=== PATIENT | female | born 1990 | race Caucasian/White ===

== ENCOUNTER 2022-06-19 09:26 | Outpatient (CLI) | payer OTHER, SELFPAY ==
[2022-06-19 09:57] LABS: Hematocrit 42.5 % (37.0-47.0); Hemoglobin 14.7 g/dL (12.0-15.0); Mean Corpuscular HGB Conc 34.6 g/dl (32-36); Mean Corpuscular Hemoglobin 34.3 pg (26-34); Mean Corpuscular Volume 99.1 fl (80-100); Mean Platelet Volume 9.5 fl (7.4-10.4); Platelet Count Result 232 k/mm3 (150-375); Red Blood Count 4.29 M/mm3 (4.2-5.4); Red Cell Distribution Width 12.8 % (11.5-14.5); White Blood Count 9.7 K/mm3 (4.5-10.0)
== END 2022-06-19 09:27 | disposition home or self-care (01) ==
PROVIDERS: Visit Provider Student in an Organized Health Care Education/Training Program
DX: Z30.2 Encounter for sterilization (principal)
CPT/HCPCS: 36415; 85027

== ENCOUNTER 2022-06-25 02:26 | Day surgery (SDC) | payer OTHER, SELFPAY ==
[2022-06-15 14:29] VITALS: BMI 32.3
--- NOTE | 2022-06-15 14:36 | SUR.PREOP ---
Report to the Outpatient Waiting Room, entrance under the green pavilion located off [facility], at time _1100 on date _06/25/22 . Planned Procedure Time: _1300,1pm . Time changes happen often and if your time is changed the preop area will call you the afternoon before. - You and your visitor will be asked to self-screen and do not enter if you have any COVID symptoms. - Only one visitor is requested with a max of two and NO children visitors are allowed at this time. - The patient visitor may be requested to leave or wait in car when not with patient due to distancing restrictions. - A mask is optional within the hospital at this time. Patients may have clear liquids (water, carbonated beverages, clear teas, apple juice) until 3 hours prior to surgery with a maximum of 20 ounces. - No food from midnight until time of surgery - Infants may have breast milk until 4 hours before surgery, formula 6 hours prior to surgery. - Children will be allowed to drink immediately following surgery. If applicable, please bring a bottle or sippy cup to assist with drinking. Juice, water, soda, and popsicles are readily available. For infants on formula, please bring formula the day of surgery. Pacifiers are allowed. Take the following medications with a SIP of water the morning of surgery: _n/a DO NOT STOP ANY OF YOUR OTHER PRESCRIPTION MEDICATIONS PRIOR TO SURGERY ?EXCEPT THE FOLLOWING Medications to discontinue per physician MULTIVITAMIN Date to take last dose__06/22/22 Please no make-up, nail puerto rican, hairspray, perfume, deodorant, or body powder the day of surgery. No jewelry (including any body piercings) or valuables the day of surgery, leave them at home. Please take a shower or bath the night before, or the morning of, surgery with an antibacterial soap. Wear comfortable, loose fitting clothing. Children are encouraged to wear pajamas. - Jewelry must be removed prior to entering the operating room. Rings and piercings that are not removed may be cut off. - The hospital will not accept responsibility for valuables. - Please leave all valuables, including medications, at home the day of surgery. If you are going home after surgery, a licensed regional driver must drive you home. - NO public transportation without another adult if you receive anesthesia. - We recommend that an adult stay with you for 24 hours following discharge. - We also recommend that you do not drive, make important decision, drink alcoholic beverages, or take any drugs that were not prescribed by your health care provider for at least 24 hours after your discharge time. For Pediatric surgeries, we recommend two adults accompany the child home. Follow any additional instructions given to you from your surgeon. If you or anyone in your household have experienced Covid symptoms in the past week, please notify your surgeon or the nurse liaison at the phone number below for possible testing. Telephone instructions given to __YENI MUÑOZ and asked if any additional questions and then verbalized understanding. Patient advised to call surgeon office or pre surgery nurse liaison [phone] if any additional questions.
--- NOTE | 2022-06-25 08:51 | PM.IMHP ---
H&P: HPI History of Present Illness Date/Time: 06/25/22 08:51 Chief Complaint: Desires permanent sterilization Narrative: ?32-year-old female who presents for lower laparoscopic bilateral tubal ligation.? Patient has 2 children and she does not desire anymore.? Patient has tried Mirena IUD in the past and did not like it.? Patient reports regular monthly menses at this time.? Patient states her periods are not very heavy.? She denies any dysmenorrhea. Review of Systems Cardiovascular: Cardiovascular: Denies chest pain, Denies leg edema, Denies palpitations, Denies dyspnea and Denies dyspnea on exertion Respiratory: Respiratory: Denies cough, Denies dyspnea and Denies dyspnea on exertion Gastrointestinal: Gastrointestinal: Denies abdominal pain, Denies constipation, Denies diarrhea, Denies nausea and Denies vomiting Genitourinary: Genitourinary: Denies hematuria, Denies urinary frequency, Denies dysuria, Denies pelvic pain, Denies urinary incontinence and Denies vaginal discharge Neurologic: Reports system reviewed and no additional complaints, except as documented Psychiatric: Psychiatric: Reports no additional psychiatric complaints Endocrine: Endocrine: Denies palpitations PMFSH Past Medical History Medical History Anxiety Klebsiella infection UTI (urinary tract infection) Surgical History Surgical History History of colposcopy (03/13/10) colp/bx - squamous atypia, sugg. koilocytotic atypia History of gynecological procedure (02/29/12) mirena iud insertion History of gynecological procedure (08/03/14) mirena iud removal Family History Family History Grandparent Diabetes mellitus maternal grandmother Father Alcohol abuse Social History Social History Smoking status: Current every day smoker Tobacco type: cigarettes Additional smoking assessment comments: cigarettes 1ppd x 16 years Alcohol intake: current Drinks per week: 36 Alcohol use details: beer Substance use: current Substance use type: marijuana Other substance usage details: daily smoking Living arrangements: with family Occupation/Education: occupation Gender identity (if verbalized by the patient): Female Sexual Orientation (if Verbalized by the Patient): Straight or Heterosexual Spiritual care concerns: No Meds Home Medications and Allergies Home Medications Medication Instructions Recorded Confirmed Type vabnanuxk-atn-sovn fumarate 18 1 tab-cap PO DAILY 06/15/22 06/15/22 History mg-FA 600 mcg-vit K 40 mcg capsule (Multi For Her) Allergies Allergy/AdvReac Type Severity Reaction Status Date / Time No Known Allergies Allergy Verified 06/15/22 14:12 Exam Const: General: no acute distress Eyes: EOM: EOMs intact bilaterally Neck: Neck: supple Thyroid: thyroid normal Chest: Breast/axilla inspection: normal inspection of the breasts Breast/axilla palpation: normal palpation of the breasts, normal palpation of the axillae and no axillary lymphadenopathy Resp: Effort & Inspection: normal respiratory effort Auscultation: clear to auscultation bilaterally Cardio: Rate: regular rate Rhythm: regular rhythm GI: Inspection: non-distended GI Palp: Yes Soft to palpation, No Tenderness to palpation present (GI) and No Guarding due to palpation present (GI) Auscultation: normal bowel sounds : General: No bladder normal to palpation External Female Exam: normal external appearance Speculum Exam - Vagina: normal vaginal discharge and No vaginal bleeding Speculum Exam - Cervix: nontender Bimanual exam- vagina & uterus: No bladder normal to palpation and No Cervical tenderness present OB/external & speculum: No vaginal bleeding Skin: General skin exam: normal color a
--- NOTE | 2022-06-25 08:52 | WPDHPUPDATE1 ---
History and Physical Update Update Date/Time: 06/25/22 08:52 History and Physical has been reviewed, including an updated exam of the patient. There are NO changes in the patient's condition. Risks, benefits, and alternatives have been discussed and questions answered. Patient agrees to proceed with procedure.
[2022-06-25 11:30] VITALS: BP 148/83; PULSE 90; RESP 16; TEMP 36.2; O2SAT 99
[2022-06-25] MEDS: LACTATED RINGERS 1,000 ML 30 ML IV CONT (11:30)
[2022-06-25] MEDS: KETOROLAC 15 MG/ML VIAL (*BKC) IV PUSH (12:00)
[2022-06-25] MEDS: ACETAMINOPHEN 500 MG TABLET 1000 MG PO (12:00)
--- NOTE | 2022-06-25 12:42 | P.PNAN_ITS ---
Anes - Initial Pre Proc Eval Procedure: Operation Date: 06/25/22 13:00 Proposed Procedures p Laparoscopic Bilateral Salpingectomy - Marvin Kumar MD Date/Time: 06/25/22 12:42 Surgeon: Marvin Kumar MD Pre Op Diagnosis: desires sterilization Patient Data Age: 32 Gender: F Height: 1.5 m Weight: 74 kg Last Vital Signs Temp 97.2 F L 06/25/22 11:30 Pulse 90 06/25/22 11:30 Resp 16 06/25/22 11:30 BP 148/83 H 06/25/22 11:30 Pulse Ox 99 06/25/22 11:30 O2 Del Method Room Air 06/25/22 11:30 Allergies Allergy/AdvReac Type Severity Reaction Status Date / Time No Known Allergies Allergy Verified 06/25/22 11:56 Home Medications Medication Instructions Recorded Confirmed Type [id number]-spi-gfim fumarate 18 1 tab-cap PO DAILY 06/15/22 06/25/22 History mg-FA 600 mcg-vit K 40 mcg capsule (Multi For Her) Patient hx anesthesia problems: none Family hx anesthesia problems: none Results Review: All pre-operative results and documents have been reviewed as part of the pre- operative evaluation. [facility] Past Medical History Medical History Anxiety Klebsiella infection UTI (urinary tract infection) Surgical History Surgical History History of colposcopy (03/13/10) colp/bx - squamous atypia, sugg. koilocytotic atypia History of gynecological procedure (02/29/12) mirena iud insertion History of gynecological procedure (08/03/14) mirena iud removal Family History Family History Grandparent Diabetes mellitus maternal grandmother Father Alcohol abuse Social History Social History Smoking status: Current every day smoker Tobacco type: cigarettes Additional smoking assessment comments: cigarettes 1ppd x 16 years Alcohol intake: current Drinks per week: 36 Alcohol use details: beer Substance use: current Substance use type: marijuana Other substance usage details: daily smoking Living arrangements: with family Occupation/Education: occupation Gender identity (if verbalized by the patient): Female Sexual Orientation (if Verbalized by the Patient): Straight or Heterosexual Spiritual care concerns: No Anes - Eval Final PreProcedure Day of Procedure 06/25/22 12:42 Patient weight: normal Heart: regular rate and rhythm Lungs: clear to auscultation Airway: Mallampati scale class II Neurological: alert and oriented Last oral intake: >/= 8 hours ASA classification: II Emergent: no Anesthetic plan: proceed Anesthesia type and monitoring: general ETT and standard monitoring Results Review: All pre-operative results and documents have been reviewed as part of the pre-operative evaluation. Informed Consent: The patient's anesthetic plan and its attendant risks and benefits were discussed with the patient/family/POA. Questions were solicited and answers provided to the satisfaction of the patient/family/POA.
[2022-06-25] MEDS: LIDO 1%/EPINEPHRINE 1:100,000 20 ML VIAL INFILTRATE (13:28)
--- NOTE | 2022-06-25 13:47 | P.OP_ITS ---
Procedure Note - Detailed Date of Procedure 06/25/22 Pre-op Diagnosis desires sterilization Post-op Diagnosis Same Procedure Performed laparoscopic bilateral salpingectomy Surgeon Marvin Kumar MD Anesthesia General Indications desires permanent sterilization Findings normal appearing uterus, bilateral fallopian tubes and ovaries Description of Procedure the patient was taken to the operating room where general endotracheal anesthesia was undertaken and found to be adequate. She was then prepped and draped in the dorsal lithotomy position. A pre-operative team brief and time- out were completed. A catheter was placed to drain the bladder. Speculum was placed in the vagina and the cervix was identified. An acorn uterine manipulator was placed as well as single-tooth tenaculum on the anterior lip of the cervix. Attention was then turned to the abdomen which was anesthetized umbilical he with injected anesthetic. A 5 mm skin incision was made in the umbilicus. A 5 mm optical trocar was then placed with direct visualization of the abdominal layers during placement. The trocar stylette was removed and the camera was used to verify intra-abdominal placement.yazmin was used to verify intra-abdominal placement. CO2 insufflation was then connected and The abdominal cavity was insufflated. General abdominal and pelvic survey was performed. Two other laparoscopic port site incisions were made approximately 2 cm superior and medial of the ASIS bilaterally. Both fallopian tubes were inspected and identified out to the level of the fimbriae. The Fimbriated end of the left fallopian tube was then grasped with a blunt grasper. the fallopian tube was then transected along its inferior aspect along the mesosalpinx with the LigaSure device. Transection was carried out to the fallopian tubes insertion into the uterine fundus. The fallopian tube was then completely transected from the uterus using the LigaSure device. This procedure was repeated for the right fallopian tube. Good hemostasis was maintained throughout. The fallopian tubes were noted to take a tortuous path and were stuck together with adhesions. Due to this, the specimen was unable to be removed through a 5 mm tocar. The umbilical port was transitioned to a 11mm port. The fallopian tubes were removed through the umbilical port in an endopouch. The umbilical port was removed. The fascial defect was closed with 0-vicryl using a Moses-Aleyda devise. The surgical field was inspected and again could hemostasis was noted. At this point the procedure was ended. The abdomen was desufflated. All laparoscopic ports were removed from the abdomen. Abdominal incisions were closed with 4-0 Vicryl in a subcuticular fashion.. The acorn manipulator and tenaculum were removed from the vagina. The cervix was inspected and good hemostasis was obtained. Sponge, lap and needle counts were correct. The patient tolerated the procedure well. The patient was taken out of dorsal lithotomy. anesthesia was reversed. The patient was taken to PACU in stable condition. Estimated Blood Loss 5 Urine Output 150 Drains No Packing No Pathology Yes ( Bilateral fallopian tubes) Complications No immediate complications Condition Stable Disposition PACU [facility] Billing Surgery - Charge Forward: Surgery Billing
[2022-06-25 13:52] VITALS: BP 117/54; PULSE 96; RESP 14; TEMP 36.7; O2SAT 95
[2022-06-25 14:05] VITALS: BP 125/73; PULSE 74; RESP 17; O2SAT 99
[2022-06-25 14:20] VITALS: BP 121/71; PULSE 74; RESP 14; O2SAT 94
[2022-06-25 14:30] VITALS: BP 124/83; PULSE 79; RESP 16
[2022-06-25 15:05] VITALS: BP 126/77; PULSE 69; RESP 12
== END 2022-06-25 15:40 | disposition home or self-care (01) ==
PROVIDERS: Visit Provider Student in an Organized Health Care Education/Training Program
PROC: (CPT 49320; principal; 2022-06-25 13:00)
DX: Z30.2 Encounter for sterilization (principal); F17.210 Nicotine dependence, cigarettes, uncomplicated; F12.90 Cannabis use, unspecified, uncomplicated
CPT/HCPCS: 58661; 88302; A9270; J0330; J1100; J1885; J2250; J2405; J2704; J3010; J7120

== ENCOUNTER 2022-12-02 15:40 | Emergency (ER) | payer OTHER, SELFPAY ==
[2022-12-02 15:42] VITALS: BP 133/85; PULSE 78; RESP 18; TEMP 36.6; O2SAT 100
[2022-12-02 16:40] LABS: Appearance Urine Turbid (Clear); Bacteria Urine 4+ /hpf; Bilirubin Urine Negative (Negative); Blood Urine 3+ (Negative); Color Urine Dark Yellow (Yellow); Glucose Urine UA Negative (Negative); Ketones Urine Negative (Negative); Leukocyte Esterase Ur 3+ LEU/UL (Negative); Need Manual Microscopic Reviewed; Nitrate Urine Positive (Negative); Non Pathogenic Casts 0-2; Protein Urine 3+ mg/dL (Negative); Specific Grav Ur 1.013 (1.001-1.035); Squamous Epithelial Cell Urine Occasional /hpf (Few); WBC Urine >100 /hpf; pH Urine 6.5 (5.0-9.0)
[2022-12-02 16:41] LABS: Add Urine Microscopic? YES
[2022-12-02] MEDS: ONDANSETRON HCL ODT 4 MG TABLET PO (18:02)
[2022-12-02] MEDS: cefTRIAXone 1 GM VIAL IM (18:04)
[2022-12-02] MEDS: KETOROLAC 30 MG/ML VIAL (*BKC) IM (18:04)
[2022-12-02] MEDS: HYDROcodone/acetaminophen (*CRX) 5-325 MG TABLET 1 TAB PO (18:06)
--- NOTE | 2022-12-02 18:06 | ED.GENADULT ---
HPI - General Adult General Chief complaint: Urogenital-Female Stated complaint: bladder pain X3 days Time Seen by Provider: 12/02/22 17:18 History of Present Illness HPI narrative: Sarai Riley is a 32 y/o female who presents today with reports of burning with urination that started 2 days ago, she reports that she has been trying to drink a lot of water and take OTC medications but she still is having symptoms She reports of lower abdominal pain, along with mild low back pain. Denies any fever/chills reports it feels like a previous UTI that she has had before. No nausea/vomiting. Related Data Home Medications Medication Instructions Recorded Confirmed [id number]-xci-gums fumarate 18 1 tab-cap PO DAILY 06/15/22 06/25/22 mg-FA 600 mcg-vit K 40 mcg capsule (Multi For Her) Allergies Allergy/AdvReac Type Severity Reaction Status Date / Time No Known Allergies Allergy Verified 12/02/22 16:48 Review of Systems Review of Systems: CONSTITUTIONAL: Denies fever, chills, or sweats. EYES: Denies visual changes, redness, or discharge. ENT: Denies rhinorrhea, congestion, sore throat, or otalgia. CARDIOVASCULAR: Denies chest pain, palpitations, or edema. RESPIRATORY: Denies cough or dyspnea. GASTROINTESTINAL: reports of lower abdominal pain denies nausea, vomiting, or diarrhea. GENITOURINARY: Reports dysuria for 2 days. SKIN: Denies rash or itching. MUSCULOSKELETAL: Denies back pain, joint pain, or myalgia. NEUROLOGIC: Denies headache, numbness, dizziness, or weakness. PSYCHIATRIC: Denies anxiety or depression. [facility] Past Medical History Medical History Anxiety Encounter for screening examination for sexually transmitted disease Klebsiella infection UTI (urinary tract infection) Surgical History Surgical History H/O bilateral salpingectomy History of colposcopy (03/13/10) colp/bx - squamous atypia, sugg. koilocytotic atypia History of gynecological procedure (02/29/12) mirena iud insertion History of gynecological procedure (08/03/14) mirena iud removal Family History Family History Grandparent Diabetes mellitus maternal grandmother Father Alcohol abuse Social History Social History Smoking status: Current every day smoker Tobacco type: cigarettes Additional smoking assessment comments: cigarettes 1ppd x 16 years Alcohol intake: current Drinks per week: 36 Alcohol use details: beer Substance use: current Substance use type: marijuana Other substance usage details: daily smoking Living arrangements: with family Occupation/Education: occupation Gender identity (if verbalized by the patient): Female Sexual Orientation (if Verbalized by the Patient): Straight or Heterosexual Spiritual care concerns: No Exam Narrative: GENERAL: Well-appearing, well-nourished, and in no acute distress. HEAD: Normocephalic, atraumatic. EYES: PERRLA and EOMI. ENT: Nares clear, no rhinorrhea or epistaxis. Mucous membranes moist. Oropharynx without tonsillar hypertrophy exudate or other lesions. Bilateral TMs pearly patel nonbulging NECK: Supple. No adenopathy or masses. No carotid bruits or JVD CHEST: Clear to auscultation. No respiratory distress. No wheezes rales or rhonchi HEART: Regular rate and rhythm. No murmur heard. Normal peripheral pulses. ABDOMEN: Soft, nondistended, normal active bowel sounds. abdomen slightly tender with palpation, No CVA tenderness noted on exam EXTREMITIES: Normal range of motion. No edema. SKIN: Warm, dry, no rash. NEURO: No focal deficits. Alert and oriented x3. PSYCH: Normal mood and affect. Course Vital Signs Vital signs: Vital Signs Temperature 36.6 C 12/02/22 15:42 Pulse Rate 78 12/02/22 15:42 Respiratory Rate 18
== END 2022-12-02 18:49 | disposition home or self-care (01) ==
PROVIDERS: Preventive Medicine Aerospace Medicine; Emergency Provider Nurse Practitioner Family
DX: N30.01 Acute cystitis with hematuria (principal); Z90.79 Acquired absence of other genital organ(s); F17.210 Nicotine dependence, cigarettes, uncomplicated
CPT/HCPCS: 81001; 87077; 87086; 87088; 87186; 96372; 99284; A9270; J0696; J1885